=== PATIENT | male | born 1990 | race Caucasian/White ===

== ENCOUNTER 2020-07-24 10:08 | Emergency (ER) | payer SELFPAY ==
[2020-07-24 10:15] VITALS: BP 161/94
[2020-07-24] MEDS ORDERED: HYDROCODONE/ACETAMINOPHEN 5-325 MG TABLET PO ONE (10:36)
--- NOTE | 2020-07-24 10:37 | ER Document Report ---
HPI - HPI Patient complains to provider of: Left knee injury Time Seen by Provider: 07/24/20 10:34 Onset: Yesterday Onset/Duration: Sudden Quality of pain: Sharp Pain Level: 2 Context: Patient states that his father fell on his left knee yesterday. Patient complains of left knee pain with extension. Patient denies any previous knee injury. Associated Symptoms: Other - Left knee pain Exacerbated by: Standing, Movement, Walking Relieved by: Denies Similar symptoms previously: No Recently seen / treated by doctor: No - ROS ROS below otherwise negative: Yes Systems Reviewed and Negative: Yes All other systems reviewed and negative - CONSTITUTIONAL Constitutional: DENIES: Fever - GASTROINTESTINAL Gastrointestinal: DENIES: Nausea - MUSCULOSKELETAL Musculoskeletal: REPORTS: Extremity pain - left knee - DERM Skin Color: Normal Skin Problems: None Past Medical History - General Information source: Patient - Social History Smoking Status: Never Smoker Chew tobacco use (# tins/day): No Frequency of alcohol use: Social Drug Abuse: Marijuana Occupation: Construction Family History: Reviewed & Not Pertinent Patient has homicidal ideation: No Pulmonary Medical History: Reports: Hx Asthma EENT Medical History: Reports: Other - Blind in left eye, deaf in left ear Past Surgical History: Reports: Hx Abdominal Surgery, Hx Orthopedic Surgery - shoulder/ - Immunizations Hx Diphtheria, Pertussis, Tetanus Vaccination: Yes Vertical Provider Document - CONSTITUTIONAL Agree With Documented VS: Yes Exam Limitations: No Limitations General Appearance: WD/WN, No Apparent Distress - HEENT HEENT: Atraumatic, Normocephalic - NECK Neck: Normal Inspection - RESPIRATORY Respiratory: No Respiratory Distress - CARDIOVASCULAR Pulses: Normal: Posterior tibial - MUSCULOSKELETAL/EXTREMETIES Musculoskeletal/Extremeties: Tender - Left knee joint tenderness worse with extension, tenderness to lateral and medial compartment, patellar tendon intact, no effusion, no laxity with varus or valgus maneuvers, No Edema. negative: Eccymosis - NEURO Level of Consciousness: Awake, Alert, Appropriate Motor/Sensory: No Motor Deficit - DERM Integumentary: Warm, Dry, No Rash Course - Re-evaluation Re-evalutation: 07/24/20 11:[address] Cho regarding patient's injury, he advises immobilization with knee immobilizer and follow-up within the next 10 days. - Vital Signs Vital signs: Temp Pulse Resp BP Pulse Ox 98.2 F 94 16 161/94 H 97 07/24/20 10:28 07/24/20 10:14 07/24/20 10:14 07/24/20 10:14 07/24/20 10:14 - Diagnostic Test Radiology reviewed: Image reviewed, Reports reviewed Procedures - Immobilization Left Knee Pre-Proc Neuro Vasc Exam: Normal Immobilizer type: Knee immobilizer Performed by: PCT Post-Proc Neuro Vasc Exam: Normal Alignment checked and good: Yes Discharge - Discharge Clinical Impression: Fracture of left tibial plateau Qualifiers: Encounter type: initial encounter Fracture type: closed Qualified Code(s): S82.142A - Displaced bicondylar fracture of left tibia, initial encounter for closed fracture Condition: Stable Disposition: HOME, SELF-CARE Instructions: Use of Crutches ([facility]), Ice & Elevation ([facility]), Knee Immobilizing Splint ([facility]), Oral Narcotic Medication ([facility]), Fractured Tibia ([facility]) Additional Instructions: Return immediately for any new or worsening symptoms Followup with your primary care provider, call tomorrow to make a followup appointment Follow-up with orthopedics within the next 10 days for further evaluation Prescriptions: Naproxen [Naprosyn 250 Nmg Tablet] 1 tab PO BID #14 tablet Hydrocodone/Acetaminophen [[place] 5-325 mg Tablet] 1 tab PO Q6 PRN #15 tablet PRN Reason: Forms: Return to Work Referrals: ESTELLA CHO JR, DO [ACTIVE PROVISIONAL STAFF] - Follow up in 1 week
--- NOTE | 2020-07-24 11:03 | RADIOLOGY REPORT (SQ) ---
EXAM DESCRIPTION: KNEE LEFT 4 VIEW IMAGES COMPLETED DATE/TIME: 07/24/2020 10:53 am REASON FOR STUDY: knee injury COMPARISON: None. NUMBER OF VIEWS: Four views. TECHNIQUE: AP, lateral, and both oblique radiographic images acquired of the left knee. LIMITATIONS: None. FINDINGS: MINERALIZATION: Normal. BONES: Nondisplaced fracture of the tibial plateau which appears to cross from medial to lateral. No worrisome bone lesions. JOINT: No effusion. SOFT TISSUES: No soft tissue swelling. No radio-opaque foreign body. OTHER: No other significant finding. IMPRESSION: NONDISPLACED FRACTURE OF THE TIBIAL PLATEAU. TECHNICAL DOCUMENTATION: JOB ID: [id number] 2010 [employer]- All Rights Reserved Reading location - IP/workstation name: [email or web address]
== END 2020-07-24 11:48 | disposition home or self-care (01) ==
LOC: ER 10:08
DX: S82.142A Displaced bicondylar fracture of left tibia, initial encounter for closed fracture (principal); W50.0XXA Accidental hit or strike by another person, initial encounter; J45.909 Unspecified asthma, uncomplicated; F12.10 Cannabis abuse, uncomplicated
CPT/HCPCS: 99284